=== PATIENT | female | born 1950 | race African-American/Black ===

== ENCOUNTER 2020-08-19 14:32 | Inpatient (IN) | payer OTHER, SELFPAY ==
[~2020-08-19] VITALS: Ht 157.5 cm; Wt 89.4 kg
[2020-08-19 14:33] VITALS: BP_SYST 146
--- NOTE | 2020-08-19 14:36 | NUR ---
Placed in room 06 . Placed on telemetry monitor, blood pressure machine and pulse oximeter. To gown for exam. Side rails up.
--- NOTE | 2020-08-19 14:40 | NUR ---
MD COLMENARES AT BEDSIDE ASSESSING PT.
--- NOTE | 2020-08-19 14:45 | NUR ---
RN ASSESSES PT, PT IS STABLE , ALERT ORIENTED, IN [employer] SPIRITS ACCOMPANIED BY . NO DISCOMFORT NOTED.
--- NOTE | 2020-08-19 15:15 | NUR ---
RADIOLOGY AT BEDSIDE
[2020-08-19 15:20] LABS: BASOPHILS % (AUTO) 0.4 % (0.0-2.0); EOSINOPHILS # (AUTO) 0.1 K/uL (0.0-0.4); EOSINOPHILS % (AUTO) 1.7 % (0.0-4.0); HEMATOCRIT 37.8 % (36-48); HEMOGLOBIN 12.6 g/dL (12.0-16.0); LYMPHOCYTES # (AUTO) 2.1 K/uL (1.0-5.5); LYMPHOCYTES % (AUTO) 25.1 % (20.5-51.5); MEAN CORPUSCULAR HEMOGLOBIN 30 pg (27-31); MEAN CORPUSCULAR HGB CONC 33 % (32-36); MEAN CORPUSCULAR VOLUME 90 fL (79.0-98.0); MONOCYTES # (AUTO) 0.5 K/uL (0.0-1.0); MONOCYTES % (AUTO) 6.2 % (1.7-9.3); NEUTROPHILS # (AUTO) 5.5 K/uL (1.8-7.7); NEUTROPHILS % (AUTO) 66.6 % (40.0-70.0); PLATELET COUNT (AUTO) 260 K/uL (130-430); RED CELL DISTRIBUTION WIDTH 15.4 % (9.0-15.0); WHITE BLOOD COUNT (AUTO) 8.2 K/uL (4.8-10.8)
--- NOTE | 2020-08-19 15:23 | NUR ---
ASSUMED CARE OF PT FROM ALEYDA JEFFERSON
--- NOTE | 2020-08-19 15:29 | NUR ---
PT ARRIVED IN ER WITH FOR COMPLAINTS OF CHEST PRESSURE SINCE LAST MORNING. PT STATES THE PRESSURE WAS 6/10 YESTERDAY AND 5/10 TODAY. BP TODAY WAS 184/113 AND SHE STATES "IT FEELS LIKE A SACK OF SUGAR IS ON MY CHEST". PT IS CALM AND IN NO DISTRESS NOW.
[2020-08-19 15:36] LABS: ANION GAP 11 (5-15); CALCIUM 9.4 mg/dL (8.4-11.0); CHLORIDE 104 mmol/L (98-107); CREATININE 0.94 mg/dL (0.55-1.30); GLUCOSE 94 mg/dL (70-99); POTASSIUM 3.3 mmol/L (3.5-5.1); SODIUM SERUM 142 mmol/L (136-145); UREA NITROGEN, BLOOD 11 mg/dL (8-21)
[2020-08-19 15:42] LABS: ALANINE AMINOTRANSFERASE 16 U/L (12-78); ALBUMIN 3.3 g/dL (3.4-4.8); ASPARTATE AMINOTRANSFERASE 17 U/L (10-37); TOTAL BILIRUBIN 0.5 mg/dL (0.0-1.0)
[2020-08-19] MEDS ORDERED: NITROGLYCERIN 0.4 MG TAB.SUBL SL ONE (17:00)
[2020-08-19] MEDS ORDERED: ASPIRIN 325 MG TABLET (ECOTRIN) PO ONE (17:00)
--- NOTE | 2020-08-19 17:09 | NUR ---
NITROGLYCERIN GIVEN WITH NO CHEST PAIN RELIEF
[2020-08-19] MEDS ORDERED: MORPHINE 4 MG INJ. 4 MG/ML VIAL IVP PRN (17:45)
[2020-08-19] MEDS ORDERED: POTASSIUM CHLORIDE 40 MEQ, LIDOCAINE JECT 2% PF 100 MG 50 MG in NS 250 ML IV PRN (17:45)
[2020-08-19] MEDS ORDERED: LORazepam 2 MG/ML VIAL IVP PRN (17:45)
[2020-08-19] MEDS ORDERED: ONDANSETRON HCL 4 MG/2 ML VIAL IVP PRN (17:45)
[2020-08-19] MEDS ORDERED: MAGNESIUM SULFATE 50 ML IV PRN (17:45)
--- NOTE | 2020-08-19 18:06 | NUR ---
PTs STATUS IS FULL CODE
[2020-08-19] MEDS ORDERED: VERA180T11 PO (18:13)
[2020-08-19] MEDS ORDERED: LISI20TA30 PO (18:13)
--- NOTE | 2020-08-19 18:13 | NUR ---
MEDICATION RECONCILIATION DONE
--- NOTE | 2020-08-19 18:14 | NUR ---
CALLED FOR A TELE BED. UNABLE TO GET A BED ASSIGNMENT
[2020-08-19 18:18] LABS: THYROID STIMULATING HORMONE 1.5 uIu/mL (0.36-3.74)
--- NOTE | 2020-08-19 19:13 | NUR ---
CONSULTATION PAGED/CALLED Reason for Consultation: CHEST PAIN. Person Who was Notified: DR JOAQUIN IS NOTIFIED Consulting Physician: DR Agapito JOAQUIN Phlebotomist Supervisor/Instructor Specialty: Ordering Physician: KODAK
--- NOTE | 2020-08-19 19:50 | NUR ---
Patient will be admitted to care of Kaylie CEBALLOS. Admitted to tele unit. Will go to room 102A. Belongings list completed. Complete and up to date summary report printed. SBAR report to be given at bedside with opportunity for questions. Report given to Cami JEFFERSON
--- NOTE | 2020-08-19 19:52 | NUR ---
ADMISSION: The patient, XOCHILT FRANCISCO, 70 y/o, F admitted by LUIS CARLOS CANDELARIO DO, was given written information regarding hospital policies, unit procedures and contact persons. Valuables were checked and pt was oriented to her room and surrounding.
[2020-08-19 20:00] VITALS: BP_SYST 149
[2020-08-19] MEDS: METOPROLOL TARTRATE 25 MG TABLET PO SCH (21:12)
--- NOTE | 2020-08-19 21:35 | NUR ---
NEW IV: PRIMARY RN STATED , UNABLE TO START AN IV ,AND PT C/O CHEST PAIN , WENT TO PT ROOM PT STATED SHE HAS PAIN TO HER MIDCHEST SHARP SHOOTING PAIN 10/27. STARTED NEW IV TO THE R FA 22G X1 ATTEMPT , GOOD BLOOD RETURN NOTICED , IV FLUSHED WELL; WILL GIVE MEDICINE FOR PAIN , PLACED PT ON O2 2L NC DUE TO HER C/O OF CHEST PAIN . PTS SAT IS 98%.
--- NOTE | 2020-08-19 21:38 | NUR ---
MORPHINE 4MG GIVEN IV BY CHARGE NURSE FOR C/O 910 CHEST PAIN. VSS. PT DECLINED BED ALARM. PT WAS INSTRUCTED TO CALL FOR ASSISTANCE BEFORE GETTING OUT OF BED IF SHE FEELS DIZZY OR DROWSY AND PT VERBALIZED UNDERSTANDING. CALL LIGHT IS WITH PT AND BED IS IN THE LOWEST AND LOCKED POSITIONS.
[2020-08-19] MEDS: NACL 0.9% 1,000 ML IV SCH (21:54)
[2020-08-19] MEDS ORDERED: POTASSIUM CHLORIDE 20 MEQ TAB.PRT.SR PO ONE (23:15)
[2020-08-20 00:27] VITALS: BP_SYST 132
[2020-08-20] MEDS: MORPHINE 2 MG/ML INJ. SYRINGE IVP PRN (03:01)
--- NOTE | 2020-08-20 03:05 | NUR ---
CHEST PAIN : PT C/O MID CHEST PAIN SHARP AND SHOOTING , 4/10 , NON RADIATING ; MEDICATED PT WITH MORPHINE 2 MG PER ORDER . WILL CONTINUE TO MONITOR PT
[2020-08-20 07:00] LABS: BASOPHILS % (AUTO) 0.2 % (0.0-2.0); EOSINOPHILS # (AUTO) 0.1 K/uL (0.0-0.4); EOSINOPHILS % (AUTO) 0.7 % (0.0-4.0); HEMATOCRIT 35.2 % (36-48); HEMOGLOBIN 11.7 g/dL (12.0-16.0); LYMPHOCYTES % (AUTO) 27.2 % (20.5-51.5); MEAN CORPUSCULAR HEMOGLOBIN 30 pg (27-31); MEAN CORPUSCULAR HGB CONC 33 % (32-36); MEAN CORPUSCULAR VOLUME 90 fL (79.0-98.0); MONOCYTES # (AUTO) 0.4 K/uL (0.0-1.0); MONOCYTES % (AUTO) 5.7 % (1.7-9.3); NEUTROPHILS # (AUTO) 4.8 K/uL (1.8-7.7); NEUTROPHILS % (AUTO) 66.2 % (40.0-70.0); PLATELET COUNT (AUTO) 253 K/uL (130-430); RED BLOOD CELL COUNT(AUTO) 3.89 MIL/uL (4.2-6.2); WHITE BLOOD COUNT (AUTO) 7.3 K/uL (4.8-10.8)
--- NOTE | 2020-08-20 07:20 | NUR ---
OPENING NOTES: RECEIVED PATIENT FROM MEDICAL TRANSLATOR NURSE. PATIENT IS AWAKE LAYING DOWN IN BED. TOLERATED OXYGEN ON 2L NASAL CANNULA WITH NO DISTRESS NOTED. IV LINE PATENT AND INTACT NO INFILTRATION NOTED. PATIENT STABLE AT THIS TIME. SAFETY, FALL, AND ASPIRATION PRECAUTIONS ARE IN PLACE. BED LOCKED IN LOWEST POSITION AND CALL LIGHT IN REACH. WILL CONTINUE TO MONITOR PATIENT FOR ANY CHANGES.
[2020-08-20 07:21] LABS: ANION GAP 7 (5-15); CALCIUM 9.1 mg/dL (8.4-11.0); CHLORIDE 105 mmol/L (98-107); GLUCOSE 104 mg/dL (70-99); POTASSIUM 3.9 mmol/L (3.5-5.1); SODIUM SERUM 141 mmol/L (136-145); UREA NITROGEN, BLOOD 8 mg/dL (8-21)
[2020-08-20 07:31] LABS: ALANINE AMINOTRANSFERASE 15 U/L (12-78); ALBUMIN 2.9 g/dL (3.4-4.8); ASPARTATE AMINOTRANSFERASE 14 U/L (10-37); PHOSPHORUS 3.4 mg/dL (2.7-4.5); TOTAL BILIRUBIN 0.4 mg/dL (0.0-1.0)
[2020-08-20 08:00] VITALS: BP_SYST 143
[2020-08-20 08:23] LABS: CHOLESTEROL 163 mg/dL (<200); HDL CHOLESTEROL 68 mg/dL (>55); LDL CHOLESTEROL 87 mg/dL (<100); TRIGLYCERIDES 45 mg/dL (30-150)
[2020-08-20] MEDS: ATORVASTATIN 20 MG TABLET PO SCH (08:31)
[2020-08-20] MEDS: ASPIRIN 81 MG TAB.CHEW PO SCH (08:31)
[2020-08-20] MEDS: METOPROLOL TARTRATE 25 MG TABLET PO SCH ×2 (08:32→21:28)
[2020-08-20] MEDS: ENOXAPARIN SODIUM 40 MG/0.4 ML SYRINGE SUBCUT SCH (08:35)
[2020-08-20] MEDS ORDERED: lisinopriL 5 MG TABLET PO SCH (09:00)
[2020-08-20 11:01] LABS: BILIRUBIN,URINE NEGATIVE (NEGATIVE); CLARITY/URINE CLEAR (CLEAR); COLOR,URINE YELLOW (YELLOW); GLUCOSE,URINE NEGATIVE (NEGATIVE); KETONES,URINE NEGATIVE (NEGATIVE); LEUKOCYTE ESTERASE ,URINE NEGATIVE (NEGATIVE); NITRITE, URINE NEGATIVE (NEGATIVE); PROTEIN URINE NEGATIVE (NEGATIVE); UROBILINOGEN,URINE 0.2 (0.2-1.0)
[2020-08-20 11:18] VITALS: BP_SYST 134
[2020-08-20 11:20] LABS: BLOOD, URINE TRACE (NEGATIVE)
[2020-08-20 12:00] VITALS: BP_SYST 134
[2020-08-20] MEDS ORDERED: lisinopriL 5 MG TABLET PO ONE (12:30)
[2020-08-20] MEDS: NACL 0.9% 1,000 ML IV SCH (12:48)
[2020-08-20 12:54] LABS: BACTERIA,URINE RARE /HPF (None Seen); WBC,URINE 0-3 /HPF (0-3)
[2020-08-20 15:17] VITALS: BP_SYST 136
--- NOTE | 2020-08-20 18:34 | NUR ---
CLOSING NOTES: PATIENT IS AWAKE LAYING DOWN IN BED. TOLERATED OXYGEN ON 2L NASAL CANNULA WITH NO DISTRESS NOTED. IV LINE PATENT AND INTACT NO INFILTRATION NOTED. PATIENT STABLE AT THIS TIME. SAFETY, FALL, AND ASPIRATION PRECAUTIONS REMAINED IN PLACE. BED LOCKED IN LOWEST POSITION AND CALL LIGHT IN REACH. WILL ENDORSE PATIENT CARE TO ONCOMING BARREL COOPER NURSE.
--- NOTE | 2020-08-20 19:45 | NUR ---
OPENING NOTES: Received report from RONNY Landa. Patient resting in bed, AAOx4, breathing evenly and nonlabored on 2L of oxygen via nasal cannula. Patient has an IV on the R forearm 22G, IVF running, patient tolerating it well. Patient denies any SOB or pain at this time. Educated patient on plan of care, fall/safety precautions, call light system. Patient stated understanding with return demonstration. Bed is locked and at lowest position. Will continue to monitor.
--- NOTE | 2020-08-20 20:27 | NUR ---
SPOKE WITH DR. CANDELARIO, CLARIFIED ORDER MISSED FORM MORNING SHIFT. MD ORDERED FOR PEPCID 20MG PO ONCE TONIGHT AND PEPCID 20MG PO DAILY.
[2020-08-20 20:58] VITALS: BP_SYST 158
[2020-08-20] MEDS ORDERED: FAMOTIDINE 20 MG TABLET PO ONE (21:15)
--- NOTE | 2020-08-20 21:28 | NUR ---
MEDICATIONS/ROUNDS: Patient resting in bed, awake, breathing evenly and unlabored on room air. O2 via nasal cannula was discontinued. O2 sat on room air was 99%. Patient denies any SOB or difficulty of breathing. Educated patient on due medications, patient stated understanding. Administered medications, patient tolerated them well. Patient denies any pain at this time. No other needs at this time. Fall/safety precautions. Will continue to monitor.
[2020-08-21 00:01] VITALS: BP_SYST 149
[2020-08-21] MEDS: MORPHINE 2 MG/ML INJ. SYRINGE IVP PRN (00:02)
--- NOTE | 2020-08-21 00:02 | NUR ---
Patient complained of moderate pain. Educated patient on PRN pain medication, non pharmacological interventions, patient stated understanding. Administered prn pain medication. Patient tolerated it well. No other needs at this time. Fall/safety precautions. Will continue to monitor.
[2020-08-21] MEDS: NACL 0.9% 1,000 ML IV SCH (04:47)
--- NOTE | 2020-08-21 06:17 | NUR ---
CLOSING NOTES: Patient resting in bed with eyes closed, breathing evenly and unlabored on room air. IVF running, patient tolerating it well. No signs and symptoms of distress at this time. No other needs at this time. Needs met throughout the shift. Fall/safety precautions, will endorse care to morning shift RN.
--- NOTE | 2020-08-21 07:25 | NUR ---
OPENING NOTES: RECEIVED PATIENT FROM MINE SUPERINTENDENT NURSE. PATIENT IS AWAKE LAYING DOWN IN BED. TOLERATED OXYGEN ON 2L NASAL CANNULA WITH NO DISTRESS NOTED. IV LINE PATENT AND INTACT NO INFILTRATION NOTED. PATIENT STABLE AT THIS TIME. SAFETY, FALL, AND ASPIRATION PRECAUTIONS ARE IN PLACE. BED LOCKED IN LOWEST POSITION AND CALL LIGHT IN REACH. WILL CONTINUE TO MONITOR PATIENT FOR ANY CHANGES.
[2020-08-21 08:00] VITALS: BP_SYST 145
[2020-08-21 08:57] LABS: BASOPHILS % (AUTO) 0.6 % (0.0-2.0); EOSINOPHILS # (AUTO) 0.2 K/uL (0.0-0.4); HEMATOCRIT 38.2 % (36-48); HEMOGLOBIN 12.6 g/dL (12.0-16.0); LYMPHOCYTES # (AUTO) 2.3 K/uL (1.0-5.5); LYMPHOCYTES % (AUTO) 32.9 % (20.5-51.5); MEAN CORPUSCULAR HEMOGLOBIN 30 pg (27-31); MEAN CORPUSCULAR HGB CONC 33 % (32-36); MEAN CORPUSCULAR VOLUME 90 fL (79.0-98.0); MONOCYTES # (AUTO) 0.5 K/uL (0.0-1.0); MONOCYTES % (AUTO) 6.5 % (1.7-9.3); PLATELET COUNT (AUTO) 286 K/uL (130-430); RED BLOOD CELL COUNT(AUTO) 4.24 MIL/uL (4.2-6.2); RED CELL DISTRIBUTION WIDTH 15.2 % (9.0-15.0); WHITE BLOOD COUNT (AUTO) 7.1 K/uL (4.8-10.8)
[2020-08-21] MEDS ORDERED: VERAPAMIL HCL 120 MG TABLET.SA PO SCH (09:00)
[2020-08-21] MEDS ORDERED: lisinopriL 20 MG TABLET PO SCH (09:00)
[2020-08-21] MEDS ORDERED: FAMOTIDINE 20 MG TABLET PO SCH (09:00)
[2020-08-21] MEDS: METOPROLOL TARTRATE 25 MG TABLET PO SCH (09:02)
[2020-08-21] MEDS: ASPIRIN 81 MG TAB.CHEW PO SCH (09:03)
[2020-08-21] MEDS: ATORVASTATIN 20 MG TABLET PO SCH (09:04)
[2020-08-21] MEDS: ENOXAPARIN SODIUM 40 MG/0.4 ML SYRINGE SUBCUT SCH (09:05)
[2020-08-21 09:13] LABS: ALANINE AMINOTRANSFERASE 15 U/L (12-78); ALBUMIN 3.1 g/dL (3.4-4.8); ANION GAP 8 (5-15); ASPARTATE AMINOTRANSFERASE 13 U/L (10-37); CALCIUM 9.1 mg/dL (8.4-11.0); CHLORIDE 107 mmol/L (98-107); CREATININE 0.77 mg/dL (0.55-1.30); GLUCOSE 88 mg/dL (70-99); PHOSPHORUS 2.8 mg/dL (2.7-4.5); SODIUM SERUM 142 mmol/L (136-145); TOTAL BILIRUBIN 0.4 mg/dL (0.0-1.0); UREA NITROGEN, BLOOD 7 mg/dL (8-21)
[2020-08-21] MEDS ORDERED: FAMO20TA8 PO (09:58)
[2020-08-21 11:46] VITALS: BP_SYST 145
[2020-08-22] MEDS ORDERED: BUSP5TAB3 PO (09:37)
== END 2020-08-21 13:30 | disposition home or self-care (01) | DRG 392 ==
LOC: SED 14:32 → STU 17:32
DX: K21.9 Gastro-esophageal reflux disease without esophagitis (principal); E44.0 Moderate protein-calorie malnutrition; Z20.822 Contact with and (suspected) exposure to COVID-19; I10 Essential (primary) hypertension; Z98.891 History of uterine scar from previous surgery; Z79.899 Other long term (current) drug therapy; Z68.36 Body mass index [BMI] 36.0-36.9, adult; Z87.891 Personal history of nicotine dependence; Z90.710 Acquired absence of both cervix and uterus
CPT/HCPCS: 36415; 71045; 80053; 80061; 81000; 83036; 83735; 83880; 84100; 84439; 84443; 84484; 85025; 93005; 93306; 99285; G0378; J1650; J2270

== ENCOUNTER 2023-09-05 16:06 | Emergency (ER) | payer OTHER, BC ==
[~2023-09-05] VITALS: Ht 157.5 cm; Wt 91.6 kg
[~2023-09-05 16:06] MED LIST: BUSP5TAB3 PO; FAMO20TA8 PO; LISI20TA30 PO; VERA180T59 PO
[2023-09-05 16:12] VITALS: BP_SYST 143; PULSE 68; RESP 18; TEMP 98.4; O2SAT 97
[2023-09-05 17:13] LABS: BASOPHILS % (AUTO) 0.5 % (0.0-2.0); EOSINOPHILS # (AUTO) 0.2 K/uL (0.0-0.4); EOSINOPHILS % (AUTO) 2.6 % (0.0-4.0); HEMATOCRIT 38.7 % (36-48); HEMOGLOBIN 13.1 g/dL (12.0-16.0); LYMPHOCYTES # (AUTO) 2.1 K/uL (1.0-5.5); LYMPHOCYTES % (AUTO) 33.5 % (20.5-51.5); MEAN CORPUSCULAR HEMOGLOBIN 30 pg (27-31); MEAN CORPUSCULAR HGB CONC 34 % (32-36); MEAN CORPUSCULAR VOLUME 89 fL (79.0-98.0); MONOCYTES # (AUTO) 0.4 K/uL (0.0-1.0); NEUTROPHILS # (AUTO) 3.6 K/uL (1.8-7.7); NEUTROPHILS % (AUTO) 56.4 % (40.0-70.0); PLATELET COUNT (AUTO) 266 K/uL (130-430); RED BLOOD CELL COUNT(AUTO) 4.35 MIL/uL (4.2-6.2); RED CELL DISTRIBUTION WIDTH 16.4 % (9.0-15.0); WHITE BLOOD COUNT (AUTO) 6.4 K/uL (4.8-10.8)
[2023-09-05 17:31] LABS: BILIRUBIN,URINE NEGATIVE (NEGATIVE); CLARITY/URINE CLEAR (CLEAR); COLOR,URINE YELLOW (YELLOW); GLUCOSE,URINE NEGATIVE (NEGATIVE); KETONES,URINE NEGATIVE (NEGATIVE); LEUKOCYTE ESTERASE ,URINE NEGATIVE (NEGATIVE); NITRITE, URINE NEGATIVE (NEGATIVE); PROTEIN URINE NEGATIVE (NEGATIVE); UROBILINOGEN,URINE 0.2 (0.2-1.0)
[2023-09-05 17:32] LABS: BLOOD, URINE TRACE (NEGATIVE)
[2023-09-05 17:33] LABS: ALANINE AMINOTRANSFERASE 17 U/L (12-78); ALBUMIN 3.5 g/dL (3.4-4.8); ANION GAP 8 (5-15); ASPARTATE AMINOTRANSFERASE 19 U/L (10-37); BILIRUBIN,DIRECT 0.1 mg/dL (0.0-0.3); CALCIUM 9.9 mg/dL (8.4-11.0); CARBON DIOXIDE 29 mmol/L (23-29); CHLORIDE 103 mmol/L (98-107); CREATININE 0.79 mg/dL (0.55-1.30); GLUCOSE 81 mg/dL (74-106); LIPASE 41 U/L (16-77); POTASSIUM 3.1 mmol/L (3.5-5.1); SODIUM SERUM 140 mmol/L (136-145); TOTAL BILIRUBIN 0.5 mg/dL (0.0-1.0); TOTAL PROTEIN, SERUM 7.2 g/dL (6.4-8.3); UREA NITROGEN, BLOOD 8 mg/dL (8-21)
[2023-09-05 17:38] LABS: BACTERIA,URINE RARE /HPF (None Seen); RBC,URINE 0-3 /HPF (0-3); WBC,URINE NONE SEEN /HPF (0-3)
[2023-09-05 17:39] LABS: MUCUS,URINE None Seen /LPF (None Seen)
[2023-09-05] MEDS: POTASSIUM CHLORIDE 20 MEQ/PKT PACKET PO ONE (19:25)
[2023-09-05 19:33] VITALS: BP_SYST 155; PULSE 50; RESP 16; TEMP 98.4; O2SAT 98
== END 2023-09-05 19:33 | disposition home or self-care (01) ==
LOC: SED 16:06
DX: R10.30 Lower abdominal pain, unspecified (principal); E87.6 Hypokalemia; R11.0 Nausea; R19.7 Diarrhea, unspecified; I10 Essential (primary) hypertension; Z90.710 Acquired absence of both cervix and uterus; Z79.899 Other long term (current) drug therapy; Z79.2 Long term (current) use of antibiotics
CPT/HCPCS: 36415; 80048; 80076; 81000; 81001; 81015; 83690; 85025; 99285